=== PATIENT | female | born 1985 | race Caucasian/White ===

== ENCOUNTER 2016-10-10 06:42 | Day surgery (SDC) | payer OTHER ==
[~2016-10-10] VITALS: Ht 170.2 cm; Wt 91.2 kg
--- NOTE | 2016-10-26 12:22 | OR ---
ADMIT: 10/10/2016 RM/LOC: [facility] MR#: [id number] [id number] [address] [address] [place] [address] Operative/Delivery Room Report SEX: F AGE: 31 : 1985 SURGERY DATE: 10/10/2016 SURGEON: Mike Novak MD PREOPERATIVE DIAGNOSIS: 1. 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 2. 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 PROCEDURES: Right breast needle localizing lumpectomy of atypical ductal hyperplasia from the 2 o'clock position and excisional lumpectomy of the fibroadenoma at 10 o'clock position. ANESTHESIA: General endotracheal tube anesthesia. ESTIMATED BLOOD LOSS: 20 mL or less. Both specimens were sent to path. The 2 o'clock position was sent first with the wire and the 10 o'clock position fibroadenoma was sent second. PROCEDURE IN DETAIL: After the risks, benefits, possible complications, and the alternatives have been explained, and informed consent had been obtained, the patient was taken back to the operating room, underwent general endotracheal tube anesthesia, and the surgical field was prepped and draped in a sterile manner. She had already going to the Radiology, they placed a guidewire in the 2 o'clock position lesion. I first started off there making an incision down through skin and subcutaneous tissue, bringing the wire through and then circumferentially dissecting around what I thought was a good and adequate specimen for this atypical ductal hyperplasia. Did never see the end of the wire, sent that to Radiology, irrigated out with sterile water. Placed some 0.5% Marcaine for some local pain control and closed with 3-0 Vicryl and 4-0 Monocryl. In the process of closing, Radiology called back and ADMIT: 10/10/2016 RM/LOC: [facility] MR#: [id number] [id number] [address] [address] [place] [address] Operative/Delivery Room Report SEX: F AGE: 31 : 1985 said the specimen was good, we had the area in question. Once that was done, closed and completed, moved to the right side. I made an incision over this palpable lesion at approximately the 9 to 10 o'clock position as she was laying down is where it ended up. I could palpate this, dissected down, circumferentially dissected around. It looks like a benign fibroadenoma, I felt I got rid of all of it. Again this was sent as well and as I was getting down, the clip was actually right on the lateral aspect of this. I was able to see that, removed it, and it was sent with the specimen 2. Once that was done, maintained hemostasis with electrocautery. Closed with 3-0 Vicryl and 4- 0 Monocryl. 0.5% Marcaine was injected. Radiology again called back and said the specimen was good. She tolerated both procedures well. She was extubated and taken to recovery room in stable and satisfactory condition. Mike Novak MD/ [facility] JOB #: [id number] CC: Mike Novak, Attending Physician FAMILY PHYSICIAN, Family Physician
== END 2016-10-10 13:30 | disposition home or self-care (01) ==
LOC: SSS 06:42 → EDSTATUS 08:00 → RAD.S 08:00 → SSS 08:00
PROC: 0HBT0ZZ Excision of Right Breast, Open Approach (ICD-10-PCS; principal; 2016-10-10)
DX: D24.1 Benign neoplasm of right breast (principal); E66.9 Obesity, unspecified; Z90.49 Acquired absence of other specified parts of digestive tract